=== PATIENT | male | born 1970 | race Caucasian/White ===

== ENCOUNTER 2018-12-30 16:36 | Emergency (ER) | payer MEDICARE ==
[~2018-12-30] VITALS: Ht 172.7 cm; Wt 77.0 kg
[2018-12-30] MEDS ORDERED: NITROGLYCER0.4 MG SL (17:10)
[2018-12-30] MEDS ORDERED: DOXYCYCL HYC100 MG PO (17:37)
[2018-12-30 17:51] VITALS: BP 113/75
== END 2018-12-30 17:55 | disposition home or self-care (01) ==
LOC: ED 16:36
DX: S70.361A Insect bite (nonvenomous), right thigh, initial encounter (principal); W57.XXXA Bitten or stung by nonvenomous insect and other nonvenomous arthropods, initial encounter; Y93.01 Activity, walking, marching and hiking; Y92.828 Other wilderness area as the place of occurrence of the external cause